=== PATIENT | female | born 1975 ===

== ENCOUNTER 2024-11-06 09:56 | Outpatient (CLI) | payer OTHER | END 2024-11-06 09:58 | disposition home or self-care (01) | LOC: SONOGRAMA 09:56 | PROVIDERS: ATTEND Pathology Anatomic Pathology & Clinical Pathology | DX: D34 Benign neoplasm of thyroid gland (principal); E07.89 Other specified disorders of thyroid; E04.0 Nontoxic diffuse goiter ==

== ENCOUNTER 2024-12-23 07:09 | Outpatient (CLI) | payer OTHER | END 2024-12-23 07:10 | disposition home or self-care (01) | LOC: NUCLEAR 07:09 | PROVIDERS: ATTEND Internal Medicine | DX: I11.9 Hypertensive heart disease without heart failure (principal) ==